=== PATIENT | male | born 1960 | race African-American/Black ===

== ENCOUNTER 2016-12-06 13:52 | Inpatient (IN) | payer OTHER ==
[2016-12-06 15:32] VITALS: BMI 27.8
--- NOTE | 2016-12-06 18:53 | HP ---
CIWA Score - CIWA Score Nausea/Vomitin-Mild Nausea/No Vomiting Muscle Tremors: 4-Moderate,w/Arms Extend Anxiety: 4-Mod. Anxious/Guarded Agitation: 3 Paroxysmal Sweats: 1-Minimal Palms Moist Orientation: 3-Disoriented Date>2 days Tacttile Disturbances: 0-None Auditory Disturbances: 0-None Visual Disturbances: 0-None Headache: 0-None Present CIWA-Ar Total Score: 16 Admission ROS S - HPI Chief Complaint: WITHDRAWAL SX Allergies/Adverse Reactions: Allergies Allergy/AdvReac Type Severity Reaction Status Date / Time shellfish derived Allergy Severe Swelling Verified 12/06/16 16:42 [Shellfish Derived] Unclassified Drug Allergy Unknown Mayonnaise Verified 12/06/16 16:42 Allergy Fish Containing Products Allergy Verified 12/06/16 16:42 History of Present Illness: 56 YEARS OLD MALE WITH LONG HISTORY OF ALCOHOL COCAINE DEPENDENCE HAS HYPERTENSION SEIZURE AND DEPRESSION IS ADMITTED TO DETOX Exam Limitations: No Limitations - Ebola screening Have you traveled outside of the country in the last 21 days: No Have you had contact with anyone from an Ebola affected area: No Have you been sick,other than usual withdrawal symptoms: No Do you have a fever: No - Review of Systems Constitutional: Chills, Changes in sleep, Weight Stable EENT: reports: No Symptoms Reported Respiratory: reports: No Symptoms reported Cardiac: reports: No Symptoms Reported GI: reports: Diarrhea, Nausea, Poor Fluid Intake, Abdominal cramping : reports: No Symptoms Reported Musculoskeletal: reports: No Symptoms Reported Integumentary: reports: No Symptoms Reported Neuro: reports: Seizure, Tremors Endocrine: reports: No Symptoms Reported Hematology: reports: No Symptoms Reported Psychiatric: reports: Judgement Intact, Depressed Other Systems: Reviewed and Negative Patient History - Patient Medical History Hx Anemia: No Hx Asthma: No Hx Chronic Obstructive Pulmonary Disease (COPD): No Hx Cancer: No Hx Cardiac Disorders: No Hx Congestive Heart Failure: No Hx Hypertension: Yes (on meds.) Hx Hypercholesterolemia: No Hx Pacemaker: No HX Cerebrovascular Accident: No Hx Seizures: Yes (seizure disorder last in 2004) Hx Dementia: No Hx Diabetes: No Hx Gastrointestinal Disorders: No Hx Liver Disease: No Hx Genitourinary Disorders: No Hx Sexually Transmitted Disorders: No Hx Renal Disease (ESRD): No Hx Thyroid Disease: No Hx Human Immunodeficiency Virus (HIV): No Hx Hepatitis C: No Hx Depression: Yes Hx Suicide Attempt: No Hx Bipolar Disorder: No Hx Schizophrenia: No - Patient Surgical History Past Surgical History: Yes Hx Neurologic Surgery: No Hx Cataract Extraction: No Hx Cardiac Surgery: No Hx Lung Surgery: No Hx Breast Surgery: No Hx Breast Biopsy: No Hx Abdominal Surgery: Yes (abd hernia repair) Hx Appendectomy: No Hx Cholecystectomy: No Hx Genitourinary Surgery: No Hx Orthopedic Surgery: Yes (Lt knee/ Lt shoulder dislocated) Anesthesia Reaction: No - PPD History Previous Implant?: Yes Documented Results: Negative w/o proof Implanted On Prior R Admission?: Yes Date: 11/03/11 PPD to be Administered?: Yes - Smoking Cessation Smoking history: Former smoker Have you smoked in the past 12 months: No Cigars Per Day: 0 Hx Chewing Tobacco Use: No Initiated information on smoking cessation: No - Substance & Tx. History Hx Alcohol Use: Yes Hx Substance Use: Yes Substance Use Type: Alcohol, Cocaine Hx Substance Use Treatment: Yes - Substances Abused Alcohol Route: Oral Frequency: Daily Amount used: 6-7 beers Age of first use: 16 Date of Last Use: 12/05/16 Crack Route: Smoking Frequency: Daily Amount used: $100-150 Age of first use: 28 Date of Last Use: 12/05/16 Family Disease History - Family Disease History Family Disease History: CA: Mother, Other: Father () Admission Physical Exam BHS - Vital Signs Vital Signs: Vital Signs - 24 hr 12/06/16 15:31 Temperature 97.6 F Pulse Rate 73 Respiratory 20 Rate Blood Pressure 154/95 - Physical General Appearance: Yes: Nourished, Appropriately Dressed, Moderate Distress, Tremorous, Irritable, Sweating, Anxious HEENTM: Yes: Hearing grossly Normal, Normal ENT Inspection, Normocephalic, Normal Voice Respiratory: Yes: Chest Non-Tender, Lungs Clear, Normal Breath Sounds, No Respiratory Distress, No Accessory Muscle Use Neck: Yes: Supple, Trachea in good position Breast: Yes: Breasts Symetrical Cardiology: Yes: Regular Rhythm, Regular Rate, S1, S2 Abdominal: Yes: Non Tender, Soft Genitourinary: Yes: Within Normal Limits Back: Yes: Normal Inspection Musculoskeletal: Yes: full range of Motion, Gait Steady Extremities: Yes: Normal Range of Motion, Non-Tender, Tremors Neurological: Yes: Alert, Motor Strength 5/5, Normal Response, Depressed Affect Integumentary: Yes: Warm Lymphatic: Yes: Within Normal Limits - Diagnostic (1) Alcohol dependence with uncomplicated withdrawal Current Visit: Yes Status: Acute (2) Cocaine dependence, uncomplicated Current Visit: Yes Status: Chronic (3) Hypertension Current Visit: Yes Status: Acute Qualifiers: Hypertension type: essential hypertension Qualified Code(s): I10 - Essential (primary) hypertension (4) Seizure Current Visit: Yes Status: Acute (5) Hyperlipidemia Current Visit: Yes Status: Acute Qualifiers: Hyperlipidemia type: pure hypercholesterolemia Qualified Code(s): E78.00 - Pure hypercholesterolemia, unspecified; E78.0 - Pure hypercholesterolemia (6) Depression headache Current Visit: Yes Status: Suspected Cleared for Admission S - Detox or Rehab [facility] Level of Care: Medically Managed Detox Regimen/Protocol: Librium [facility] Breath Alcohol Content Breath Alcohol Content: 0 Urine Drug Screen - Results Drug Screen Negative: No Urine Drug Screen Results: JELENA-Cocaine, TCA-Tricyclic Antidepress
[2016-12-06] MEDS ORDERED: chlordiazePOXIDE HCL 25 MG CAPSULE PO ONE (19:01)
[2016-12-06] MEDS ORDERED: chlordiazePOXIDE HCL 25 MG CAPSULE PO PRN (19:01)
[2016-12-06] MEDS ORDERED: MENTHOL/PHENOL 1 EACH UD MM PRN (19:01)
[2016-12-06] MEDS ORDERED: guaiFENesin/D-METHORPHAN HB 10 ML UNIT-DOSE CUPS PO PRN (19:01)
[2016-12-06] MEDS ORDERED: MAGNESIUM CITRATE 300 ML BOTTLE PO PRN (19:01)
[2016-12-06] MEDS ORDERED: ACETAMINOPHEN 325 MG TABLET (FP) PO PRN (19:01)
[2016-12-06] MEDS ORDERED: P-EPHED 60MG/TRIPROLIDI 2.5MG TABLET PO PRN (19:01)
[2016-12-06] MEDS ORDERED: hydrOXYzine PAMOATE 50 MG CAPSULE (FP) PO PRN (19:01)
[2016-12-06] MEDS ORDERED: MAG HYDROX/AL HYDROX/SIMETH 30 ML UNIT-DOSE CUP PO PRN (19:01)
[2016-12-06] MEDS ORDERED: diphenhydrAMINE HCL 50 MG CAPSULE PO PRN (19:01)
[2016-12-06] MEDS ORDERED: MAGNESIUM HYDROX 2400MG/30ML ORAL SUSPENSION 30 ML CUP PO PRN (19:01)
[2016-12-06] MEDS: ATORVASTATIN CA 10 MG TABLET (FP) PO SCH (21:28)
[2016-12-06] MEDS: THIAMINE HCL 100 MG TABLET (FP) PO SCH (22:29)
[2016-12-06] MEDS: chlordiazePOXIDE HCL 25 MG CAPSULE PO SCH (22:29)
[2016-12-06 23:19] LABS: URINE APPEARANCE TURBID; URINE BILIRUBIN NEGATIVE (NEGATIVE); URINE BLOOD NEGATIVE (NEGATIVE); URINE COLOR YELLOW; URINE GLUCOSE (UA) NEGATIVE (NEGATIVE); URINE KETONE NEGATIVE (NEGATIVE); URINE LEUK ESTERASE NEGATIVE (NEGATIVE); URINE NITRITE NEGATIVE (NEGATIVE); URINE PROTEIN NEGATIVE (NEGATIVE); URINE UROBILINOGEN NEGATIVE E.U./dl (0.2-1.0)
[2016-12-07] MEDS: chlordiazePOXIDE HCL 25 MG CAPSULE PO SCH ×4 (06:02→22:31)
[2016-12-07 10:01] LABS: MCH 29.1 pg (25.7-33.7); MCHC 33.4 g/dl (32.0-35.9); PLATELET COUNT 176 K/MM3 (134-434); RDW 14.2 % (11.9-15.9); WHITE BLOOD COUNT 7.5 K/mm3 (4.0-10.0)
--- NOTE | 2016-12-07 10:41 | PN ---
S CIWA - CIWA Score Nausea/Vomitin Muscle Tremors: 3 Anxiety: 3 Agitation: 3 Paroxysmal Sweats: 1-Minimal Palms Moist Orientation: 0-Oriented Tacttile Disturbances: 1-Very Mild Itch/Numbness Auditory Disturbances: 1-Very Mild Visual Disturbances: 1-Very Mild Sensitivity Headache: 2-Mild CIWA-Ar Total Score: 18 BHS Progress Note (SOAP) Subjective: ALERT,IRRITABLE,ANXIOUS,INTERRUPTED SLEEP,TREMOR Objective: 12/07/16 10:39 Vital Signs Temperature 99.9 F H 12/07/16 10:14 Pulse Rate 68 12/07/16 10:14 Respiratory Rate 20 12/07/16 10:14 Blood Pressure 126/63 12/07/16 10:14 O2 Sat by Pulse Oximetry (%) EKG NSR Laboratory Last Values WBC 7.5 K/mm3 (4.0-10.0) D 12/07/16 06:00 RBC 5.00 M/mm3 (4.00-5.60) 12/07/16 06:00 Hgb 14.6 GM/dL (11.7-16.9) D 12/07/16 06:00 Hct 43.5 % (35.4-49) 12/07/16 06:00 MCV 87.0 fl (80-96) 12/07/16 06:00 MCHC 33.4 g/dl (32.0-35.9) 12/07/16 06:00 RDW 14.2 % (11.9-15.9) 12/07/16 06:00 Plt Count 176 K/MM3 (134-434) D 12/07/16 06:00 MPV 9.0 fl (7.5-11.1) 12/07/16 06:00 Sodium 141 mmol/L (136-145) 12/07/16 06:00 Potassium 4.0 mmol/L (3.5-5.1) 12/07/16 06:00 Chloride 101 mmol/L (98-107) 12/07/16 06:00 Urine Color Yellow 12/06/16 23:00 Urine Appearance Turbid 12/06/16 23:00 Urine pH 5.0 (5.0-8.0) D 12/06/16 23:00 Ur Specific [place] 1.024 (1.001-1.035) 12/06/16 23:00 Urine Protein Negative (NEGATIVE) 12/06/16 23:00 Urine Glucose (UA) Negative (NEGATIVE) 12/06/16 23:00 Urine Ketones Negative (NEGATIVE) 12/06/16 23:00 Urine Blood Negative (NEGATIVE) 12/06/16 23:00 Urine Nitrite Negative (NEGATIVE) 12/06/16 23:00 Urine Bilirubin Negative (NEGATIVE) 12/06/16 23:00 Urine Urobilinogen Negative E.U./dl (0.2-1.0) 12/06/16 23:00 Ur Leukocyte Esterase Negative (NEGATIVE) 12/06/16 23:00 LABS PENDING Assessment: 12/07/16 10:40 WITHDRAWAL SYMPTOM Plan: CONTINUE DETOX
[2016-12-07 10:43] LABS: ALBUMIN 4.6 g/dl (3.4-5.0); ALK PHOS 123 U/L (45-117); ANION GAP 11 (8-16); BILIRUBIN,TOTAL 0.6 mg/dL (0.2-1.0); CO2 29 mmol/L (21-32); CREATININE 1.2 mg/dL (0.7-1.3); GLUCOSE,RANDOM 82 mg/dL (74-106); SGOT/AST 32 U/L (15-37); SGPT/ALT 44 U/L (12-78); TOT PROT 8.2 g/dl (6.4-8.2)
[2016-12-07] MEDS: carBAMazepine 200 MG TABLET PO SCH (11:38)
[2016-12-07] MEDS: amLODIPine BESYLATE 10 MG TABLET (FP) PO SCH (11:38)
[2016-12-07] MEDS: PRENATAL VITAMINS W/ FOLIC ACID TABLET (FP) PO SCH (11:38)
--- NOTE | 2016-12-07 15:09 | CONSULT ---
[facility] Psychiatric Consult - Data Date of interview: 12/07/16 Admission source: [facility] Identifying data: This is a 56 year old single black male, unemployed and domiciled. Substance Abuse History: Patient reports drinking 6-7 cans of beer daily.Cocaine $100-150 daily Medical History: HTN, seizure disorder. Psychiatric History: Patient reports he feels sad, no history of psychiatric hospitalizations, states he physically does not feel well to talk and willing to do it when feels better. Physical/Sexual Abuse/Trauma History: denies Mental Status Exam - Mental Status Exam Alert and Oriented to: Time, Place, Person Cognitive Function: Good Patient Appearance: Well Groomed Mood: Sad, Anxious Affect: Appropriate, Mood Congruent Patient Behavior: Appropriate, Cooperative Speech Pattern: Clear, Appropriate Voice Loudness: Normal Thought Process: Intact, Goal Oriented Thought Disorder: Not Present Hallucinations: Denies Suicidal Ideation: Denies Homicidal Ideation: Denies Insight/Judgement: Fair Sleep: Fair Appetite: Fair Muscle strength/Tone: Normal Gait/Station: Normal Psychiatric Findings - Problem List ([place] 1, 2,3) (1) Alcohol dependence with uncomplicated withdrawal Current Visit: Yes Status: Acute (2) Cocaine dependence, uncomplicated Current Visit: Yes Status: Chronic - Initial Treatment Plan Initial Treatment Plan: continue detox. protocol, please call for consult when patient is feeling better..
--- NOTE | 2016-12-07 16:28 | EKG ---
Test Reason : Blood Pressure : / mmHG Vent. Rate : 085 BPM Atrial Rate : 085 BPM P-R Int : 134 ms QRS Dur : 080 ms QT Int : 376 ms P-R-T Axes : 069 035 050 degrees QTc Int : 447 ms NORMAL SINUS RHYTHM MINIMAL VOLTAGE CRITERIA FOR LVH, MAY BE NORMAL VARIANT NONSPECIFIC T WAVE ABNORMALITY ABNORMAL ECG NO PREVIOUS ECGS AVAILABLE Confirmed by ANA LAURA JACOBSEN MD ([id number]) on 12/07/2016 4:28:22 PM Referred By: Wm López Confirmed By:ANA LAURA JACOBSEN MD
[2016-12-07] MEDS: IBUPROFEN 400 MG TABLET (FP) PO PRN (17:53)
[2016-12-07] MEDS: THIAMINE HCL 100 MG TABLET (FP) PO SCH (22:30)
[2016-12-07] MEDS: ATORVASTATIN CA 10 MG TABLET (FP) PO SCH (22:31)
[2016-12-07] MEDS: LOPERAMIDE HCL 2 MG CAPSULE PO PRN (22:33)
[2016-12-08] MEDS: chlordiazePOXIDE HCL 25 MG CAPSULE PO SCH ×3 (06:06→17:55)
[2016-12-08] MEDS: amLODIPine BESYLATE 10 MG TABLET (FP) PO SCH (10:32)
[2016-12-08] MEDS: PRENATAL VITAMINS W/ FOLIC ACID TABLET (FP) PO SCH (10:32)
[2016-12-08] MEDS: carBAMazepine 200 MG TABLET PO SCH (10:32)
[2016-12-08] MEDS: LOPERAMIDE HCL 2 MG CAPSULE PO PRN ×2 (10:34→19:32)
--- NOTE | 2016-12-08 10:45 | PN ---
S CIWA - CIWA Score Nausea/Vomitin Muscle Tremors: 3 Anxiety: 3 Agitation: 2 Paroxysmal Sweats: 1-Minimal Palms Moist Orientation: 0-Oriented Tacttile Disturbances: 1-Very Mild Itch/Numbness Auditory Disturbances: 1-Very Mild Visual Disturbances: 1-Very Mild Sensitivity Headache: 2-Mild CIWA-Ar Total Score: 17 BHS Progress Note (SOAP) Subjective: ALERT,IRRITABLE,ANXIOUS,INTERRUPTED SLEEP,TREMOR Objective: 12/08/16 10:40 Vital Signs Temperature 99.9 F H 12/08/16 09:50 Pulse Rate 91 H 12/08/16 09:50 Respiratory Rate 20 12/08/16 09:50 Blood Pressure 138/75 12/08/16 09:50 O2 Sat by Pulse Oximetry (%) Laboratory Last Values WBC 7.5 K/mm3 (4.0-10.0) D 12/07/16 06:00 RBC 5.00 M/mm3 (4.00-5.60) 12/07/16 06:00 Hgb 14.6 GM/dL (11.7-16.9) D 12/07/16 06:00 Hct 43.5 % (35.4-49) 12/07/16 06:00 MCV 87.0 fl (80-96) 12/07/16 06:00 MCHC 33.4 g/dl (32.0-35.9) 12/07/16 06:00 RDW 14.2 % (11.9-15.9) 12/07/16 06:00 Plt Count 176 K/MM3 (134-434) D 12/07/16 06:00 MPV 9.0 fl (7.5-11.1) 12/07/16 06:00 Sodium 141 mmol/L (136-145) 12/07/16 06:00 Potassium 4.0 mmol/L (3.5-5.1) 12/07/16 06:00 Chloride 101 mmol/L (98-107) 12/07/16 06:00 Carbon Dioxide 29 mmol/L (21-32) 12/07/16 06:00 Anion Gap 11 (8-16) 12/07/16 06:00 BUN 18 mg/dL (7-18) D 12/07/16 06:00 Creatinine 1.2 mg/dL (0.7-1.3) D 12/07/16 06:00 Creat Clearance w eGFR > 60 (>60) 12/07/16 06:00 Random Glucose 82 mg/dL (74-106) 12/07/16 06:00 Calcium 9.0 mg/dL (8.5-10.1) 12/07/16 06:00 Total Bilirubin 0.6 mg/dL (0.2-1.0) D 12/07/16 06:00 AST 32 U/L (15-37) D 12/07/16 06:00 ALT 44 U/L (12-78) D 12/07/16 06:00 Alkaline Phosphatase 123 U/L (45-117) H D 12/07/16 06:00 Total Protein 8.2 g/dl (6.4-8.2) D 12/07/16 06:00 Albumin 4.6 g/dl (3.4-5.0) D 12/07/16 06:00 Urine Color Yellow 12/06/16 23:00 Urine Appearance Turbid 12/06/16 23:00 Urine pH 5.0 (5.0-8.0) D 12/06/16 23:00 Ur Specific [place] 1.024 (1.001-1.035) 12/06/16 23:00 Urine Protein Negative (NEGATIVE) 12/06/16 23:00 Urine Glucose (UA) Negative (NEGATIVE) 12/06/16 23:00 Urine Ketones Negative (NEGATIVE) 12/06/16 23:00 Urine Blood Negative (NEGATIVE) 12/06/16 23:00 Urine Nitrite Negative (NEGATIVE) 12/06/16 23:00 Urine Bilirubin Negative (NEGATIVE) 12/06/16 23:00 Urine Urobilinogen Negative E.U./dl (0.2-1.0) 12/06/16 23:00 Ur Leukocyte Esterase Negative (NEGATIVE) 12/06/16 23:00 Carbamazepine 3.8 ug/ml (4.0-12.0) L 12/07/16 06:00 RPR Titer Nonreactive (NONREACTIVE) 12/07/16 06:00 12/08/16 10:45 Assessment: 12/08/16 10:45 WITHDRAWAL SYMPTOM Plan: CONTINUE DETOX,ENCOURAGE ORAL FLUID
[2016-12-08] MEDS: IBUPROFEN 400 MG TABLET (FP) PO PRN (19:32)
--- NOTE | 2016-12-08 20:19 | PN ---
[id number], alert oriented x 3, no acute distress, states that abdominal pain with diarrhea x 2 days abdomen round, hypersonic x 4, gassy, discontinue motrin, begin zantac 150 mg bid + carafate 2 G bid abdomen x ray encourage oral fluid continue alcohol detox
[2016-12-08] MEDS: chlordiazePOXIDE 5 MG CAPSULE PO SCH (22:39)
[2016-12-08] MEDS: ATORVASTATIN CA 10 MG TABLET (FP) PO SCH (22:39)
[2016-12-08] MEDS: PANTOPRAZOLE 40 MG TABLET (FP) PO SCH (22:39)
[2016-12-08] MEDS: THIAMINE HCL 100 MG TABLET (FP) PO SCH (23:45)
[2016-12-08] MEDS: SUCRALFATE 1 GM TABLET (FP) PO SCH (23:58)
[2016-12-09] MEDS: chlordiazePOXIDE 5 MG CAPSULE PO SCH ×3 (08:29→18:40)
[2016-12-09] MEDS: PANTOPRAZOLE 40 MG TABLET (FP) PO SCH (11:30)
[2016-12-09] MEDS: carBAMazepine 200 MG TABLET PO SCH (11:30)
[2016-12-09] MEDS: amLODIPine BESYLATE 10 MG TABLET (FP) PO SCH (11:30)
[2016-12-09] MEDS: PRENATAL VITAMINS W/ FOLIC ACID TABLET (FP) PO SCH (11:30)
--- NOTE | 2016-12-09 14:53 | PN ---
BHS Progress Note (SOAP) Subjective: Interrupted sleep, Body aches, Diarrhea, Sweating. Objective: PT. A & O X 3, OBSERVED AMBULATING ON UNIT. 12/09/16 14:51 Vital Signs Temperature 97.7 F 12/09/16 14:15 Pulse Rate 92 H 12/09/16 14:15 Respiratory Rate 18 12/09/16 14:15 Blood Pressure 106/61 12/09/16 14:15 O2 Sat by Pulse Oximetry (%) Laboratory Last Values WBC 7.5 K/mm3 (4.0-10.0) D 12/07/16 06:00 RBC 5.00 M/mm3 (4.00-5.60) 12/07/16 06:00 Hgb 14.6 GM/dL (11.7-16.9) D 12/07/16 06:00 Hct 43.5 % (35.4-49) 12/07/16 06:00 MCV 87.0 fl (80-96) 12/07/16 06:00 MCHC 33.4 g/dl (32.0-35.9) 12/07/16 06:00 RDW 14.2 % (11.9-15.9) 12/07/16 06:00 Plt Count 176 K/MM3 (134-434) D 12/07/16 06:00 MPV 9.0 fl (7.5-11.1) 12/07/16 06:00 Sodium 141 mmol/L (136-145) 12/07/16 06:00 Potassium 4.0 mmol/L (3.5-5.1) 12/07/16 06:00 Chloride 101 mmol/L (98-107) 12/07/16 06:00 Carbon Dioxide 29 mmol/L (21-32) 12/07/16 06:00 Anion Gap 11 (8-16) 12/07/16 06:00 BUN 18 mg/dL (7-18) D 12/07/16 06:00 Creatinine 1.2 mg/dL (0.7-1.3) D 12/07/16 06:00 Creat Clearance w eGFR > 60 (>60) 12/07/16 06:00 Random Glucose 82 mg/dL (74-106) 12/07/16 06:00 Calcium 9.0 mg/dL (8.5-10.1) 12/07/16 06:00 Total Bilirubin 0.6 mg/dL (0.2-1.0) D 12/07/16 06:00 AST 32 U/L (15-37) D 12/07/16 06:00 ALT 44 U/L (12-78) D 12/07/16 06:00 Alkaline Phosphatase 123 U/L (45-117) H D 12/07/16 06:00 Total Protein 8.2 g/dl (6.4-8.2) D 12/07/16 06:00 Albumin 4.6 g/dl (3.4-5.0) D 12/07/16 06:00 Urine Color Yellow 12/06/16 23:00 Urine Appearance Turbid 12/06/16 23:00 Urine pH 5.0 (5.0-8.0) D 12/06/16 23:00 Ur Specific [place] 1.024 (1.001-1.035) 12/06/16 23:00 Urine Protein Negative (NEGATIVE) 12/06/16 23:00 Urine Glucose (UA) Negative (NEGATIVE) 12/06/16 23:00 Urine Ketones Negative (NEGATIVE) 12/06/16 23:00 Urine Blood Negative (NEGATIVE) 12/06/16 23:00 Urine Nitrite Negative (NEGATIVE) 12/06/16 23:00 Urine Bilirubin Negative (NEGATIVE) 12/06/16 23:00 Urine Urobilinogen Negative E.U./dl (0.2-1.0) 12/06/16 23:00 Ur Leukocyte Esterase Negative (NEGATIVE) 12/06/16 23:00 Carbamazepine 3.8 ug/ml (4.0-12.0) L 12/07/16 06:00 RPR Titer Nonreactive (NONREACTIVE) 12/07/16 06:00 LABS NOTED. Assessment: 12/09/16 14:52 WITHDRAWAL SYMPTOMS. Plan: CONTINUE DETOX. ADVISED PATIENT TO FOLLOW-UP WITH [facility] / REHAB MEDICAL PROVIDER AFTER DISCHARGE FROM DETOX FOR GENERAL MEDICAL ASSESSMENT AND FOR ABNORMAL ADMISSION LAB VALUES.
[2016-12-09] MEDS: SUCRALFATE 1 GM TABLET (FP) PO SCH (15:44)
[2016-12-10] MEDS: SUCRALFATE 1 GM TABLET (FP) PO SCH ×2 (00:06→10:53)
[2016-12-10] MEDS: ATORVASTATIN CA 10 MG TABLET (FP) PO SCH (00:06)
[2016-12-10] MEDS: THIAMINE HCL 100 MG TABLET (FP) PO SCH (00:06)
[2016-12-10] MEDS: PANTOPRAZOLE 40 MG TABLET (FP) PO SCH ×2 (00:06→10:53)
[2016-12-10] MEDS: chlordiazePOXIDE HCL 10 MG CAPSULE PO SCH ×4 (00:08→18:12)
[2016-12-10] MEDS: PRENATAL VITAMINS W/ FOLIC ACID TABLET (FP) PO SCH (10:53)
[2016-12-10] MEDS: carBAMazepine 200 MG TABLET PO SCH (10:54)
[2016-12-10] MEDS: amLODIPine BESYLATE 10 MG TABLET (FP) PO SCH (10:54)
--- NOTE | 2016-12-10 14:57 | PN ---
BHS Progress Note (SOAP) Subjective: C/O sharrp stomach pain and diarrhea since admission (patient believes he has stomach virus), feeling weak, anxious, interrupted sleep. Patient roommate stated that patient is sick and have diarrhea every day. Patient reports poor appetite (didn't eat breakfast because doesn't have any appetite) Objective: 12/10/16 14:53 Last Vital Signs Temp Pulse Resp BP Pulse Ox 97.7 F 93 H 18 126/73 12/10/16 13:52 12/10/16 13:52 12/10/16 13:52 12/10/16 13:52 PE: Mouth: moist mucous membranes, lips moist Resp: lungs ctab/l, no adventitious breath sounds CV: rrr, s1s2+, apical rate 80 bmp, no m/g/r Abd: softly distended, + bs x 4, no rebound tenderness Skin: turgor good, moist Laboratory Tests 12/06/16 12/07/16 12/07/16 23:00 06:00 06:00 WBC 7.5 D RBC 5.00 Hgb 14.6 D Hct 43.5 MCV 87.0 MCHC 33.4 RDW 14.2 Plt Count 176 D MPV 9.0 Sodium 141 Potassium 4.0 Chloride 101 Carbon Dioxide 29 Anion Gap 11 BUN 18 D Creatinine 1.2 D Creat Clearance w eGFR > 60 Random Glucose 82 Calcium 9.0 Total Bilirubin 0.6 D AST 32 D ALT 44 D Alkaline Phosphatase 123 H D Total Protein 8.2 D Albumin 4.6 D Urine Color Yellow Urine Appearance Turbid Urine pH 5.0 D Ur Specific [place] 1.024 Urine Protein Negative Urine Glucose (UA) Negative Urine Ketones Negative Urine Blood Negative Urine Nitrite Negative Urine Bilirubin Negative Urine Urobilinogen Negative Ur Leukocyte Esterase Negative Carbamazepine RPR Titer 12/07/16 12/07/16 06:00 06:00 WBC RBC Hgb Hct MCV MCHC RDW Plt Count MPV Sodium Potassium Chloride Carbon Dioxide Anion Gap BUN Creatinine Creat Clearance w eGFR Random Glucose Calcium Total Bilirubin AST ALT Alkaline Phosphatase Total Protein Albumin Urine Color Urine Appearance Urine pH Ur Specific [place] Urine Protein Urine Glucose (UA) Urine Ketones Urine Blood Urine Nitrite Urine Bilirubin Urine Urobilinogen Ur Leukocyte Esterase Carbamazepine 3.8 L RPR Titer Nonreactive Labs noted 12/10/16 14:57 Assessment: 12/10/16 14:54 Withdrawal symptoms c/o persistent abdominal pain with diarrhea Plan: Continue detox Viral gastroenteritis: abdominal xray in AM, repeat BMP, change diet to clear liquids (patient agreed; can advance diet when sxs improved), encouraged to drink lots of water, provide water pitcher to patient, continue imodium prn
[2016-12-10] MEDS ORDERED: LOPERAMIDE HCL 2 MG CAPSULE PO ONE (15:10)
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
[2016-12-11] MEDS: THIAMINE HCL 100 MG TABLET (FP) PO SCH (00:10)
[2016-12-11] MEDS: SUCRALFATE 1 GM TABLET (FP) PO SCH ×2 (00:10→10:59)
[2016-12-11] MEDS: PANTOPRAZOLE 40 MG TABLET (FP) PO SCH ×2 (00:10→10:58)
[2016-12-11] MEDS: ATORVASTATIN CA 10 MG TABLET (FP) PO SCH (00:10)
--- NOTE | 2016-12-11 08:42 | PN ---
S Progress Note (SOAP) Subjective: ALERT,NO COMPLAINT Objective: 12/11/16 08:41 Vital Signs Temperature 97.2 F L 12/11/16 06:44 Pulse Rate 81 12/11/16 06:44 Respiratory Rate 18 12/11/16 06:44 Blood Pressure 110/70 12/11/16 06:44 O2 Sat by Pulse Oximetry (%) Assessment: 12/11/16 08:41 DETOX COMPLETED,NO WITHDRAWAL SYMPTOM Plan: DISCHARGE TODAY,FOLLOW UP WITH AFTER CARE PROGRAM ARRANGEMENT
--- NOTE | 2016-12-11 08:47 | DS ---
[facility] Detox Discharge Summary Admission Date: 12/06/16 Discharge Date: 12/11/16 - History Present History: Alcohol Dependence, Cocaine Dependence Additional Comments: FOLLOW UP WITH [facility] PROGRAM ARRANGEMENT AND PMD FOR MEDICAL PROBLEM Pertinent Past History: HYPERTESION SEIZURE HYPERLIPIDEMIA DEPRESSION - Physical Exam Results Vital Signs: Vital Signs Temperature 97.2 F L 12/11/16 06:44 Pulse Rate 81 12/11/16 06:44 Respiratory Rate 18 12/11/16 06:44 Blood Pressure 110/70 12/11/16 06:44 O2 Sat by Pulse Oximetry (%) Pertinent Admission Physical Exam Findings: WITHDRAWAL SYMPTOM - Treatment Hospital Course: Detox Protocol Followed, Detoxed Safely, Responded well, Discharged Condition Good Patient has Accepted a Rehab Referral to: DECLINED - Medication Discharge Medications: Ambulatory Orders Amlodipine/Atorvastatin [Amlodipine-Atorvast 10-10 mg] 1 each PO DAILY 12/06/16 Carbamazepine [Tegretol -] 400 mg PO DAILY 12/06/16 - AMA Did Patient Leave Against Medical Advice: No
[2016-12-11 09:44] VITALS: BP 137/76; PULSE 77; TEMP 100
[2016-12-11 10:18] LABS: CALCIUM 8.1 mg/dL (8.5-10.1); COCKROFT - GAULT 97.9; CREATININE 1.2 mg/dL (0.7-1.3)
--- NOTE | 2016-12-11 10:45 | PN ---
S Progress Note Note: ADDENDUM K IS 3.3 ON KDUR 20 JULIANNE PO DAILY FOR 7 DAYS,E PRESCRIPTION TO [facility]
[2016-12-11] MEDS: carBAMazepine 200 MG TABLET PO SCH (10:57)
[2016-12-11] MEDS: PRENATAL VITAMINS W/ FOLIC ACID TABLET (FP) PO SCH (10:57)
[2016-12-11] MEDS: amLODIPine BESYLATE 10 MG TABLET (FP) PO SCH (10:58)
[2016-12-11] MEDS ORDERED: POTASSIUM CHLORIDE TABS 20 MEQ TABLET.ER (FP) PO ONE (11:19)
[2016-12-12] MEDS ORDERED: POTASSIUM CHLORIDE TABS 20 MEQ TABLET.ER (FP) PO SCH (10:00)
== END 2016-12-11 12:45 | disposition home or self-care (01) | DRG 774 ==
LOC: YASAS 13:52 → Y6N 18:11
PROVIDERS: ADMIT Internal Medicine Addiction Medicine; ATTEND Internal Medicine Addiction Medicine
PROC: HZ2ZZZZ Detoxification Services for Substance Abuse Treatment (ICD-10-PCS; principal; 2016-12-11)
DX: F10.230 Alcohol dependence with withdrawal, uncomplicated (principal); F14.20 Cocaine dependence, uncomplicated; F32.9 Major depressive disorder, single episode, unspecified; I10 Essential (primary) hypertension; G40.909 Epilepsy, unspecified, not intractable, without status epilepticus; E78.00 Pure hypercholesterolemia, unspecified
CPT/HCPCS: 36415; 74020-TC; 80048; 80053; 80156; 81003; 85027; 86593; 93005; 93010

== ENCOUNTER 2022-04-19 14:05 | Inpatient (IN) | payer OTHER ==
[2022-04-19] MEDS ORDERED: guaiFENesin 200 MG/10 ML 10 ML UNIT-DOSE CUPS PO PRN (17:57)
[2022-04-19] MEDS ORDERED: LOPERAMIDE HCL 2 MG CAPSULE PO PRN (17:57)
[2022-04-19] MEDS ORDERED: MAGNESIUM HYDROX 2400MG/30ML ORAL SUSPENSION 30 ML CUP PO PRN (17:57)
[2022-04-19] MEDS ORDERED: MAG HYDROX/AL HYDROX/SIMETH 30 ML UNIT-DOSE CUP PO PRN (17:57)
[2022-04-19] MEDS ORDERED: P-EPHED 60MG/TRIPROLIDI 2.5MG TABLET PO PRN (17:57)
[2022-04-19] MEDS ORDERED: MAGNESIUM CITRATE 300 ML BOTTLE PO PRN (17:57)
[2022-04-19 21:26] VITALS: BMI 23.7
[2022-04-19] MEDS ORDERED: TUBERCULIN PPD 5 TU/0.1ML VIAL ID ONE (22:40)
[2022-04-19] MEDS: hydrOXYzine PAMOATE 25 MG CAPSULE (FP) PO SCH ×2 (22:50→22:51)
[2022-04-19] MEDS: MELATONIN 5 MG TABLETS PO SCH (22:51)
[2022-04-19] MEDS: THIAMINE HCL 100 MG TABLET (FP) PO SCH (22:51)
[2022-04-20 04:30] LABS: EPI CELLS 5 /uL (0-25.1); HYALINE CASTS 3 /uL (0-3.1); URINE APPEARANCE TURBID; URINE BACTERIA 82 /uL (0-1359); URINE BILIRUBIN NEGATIVE (NEGATIVE); URINE COLOR YELLOW; URINE GLUCOSE (UA) NEGATIVE (NEGATIVE); URINE KETONE NEGATIVE (NEGATIVE); URINE LEUK ESTERASE 3+ (NEGATIVE); URINE NITRITE NEGATIVE (NEGATIVE); URINE PROTEIN 1+ (NEGATIVE); URINE RBC 476 /uL (0-23.9); URINE UROBILINOGEN 0.2 mg/dL (0.2-1.0); URINE WBC 4697 /uL (0-25.8)
[2022-04-20] MEDS: hydrOXYzine PAMOATE 25 MG CAPSULE (FP) PO SCH ×5 (07:30→21:26)
[2022-04-20] MEDS: PRENATAL VITAMINS W/ FOLIC ACID TABLET (FP) PO SCH (10:13)
[2022-04-20] MEDS ORDERED: carBAMazepine 200 MG TABLET PO ONE (14:14)
[2022-04-20] MEDS: amLODIPine BESYLATE 10 MG TABLET (FP) PO SCH (15:25)
[2022-04-20 15:49] LABS: HEMATOCRIT 34.5 % (35.4-49); HEMOGLOBIN 11.6 GM/dL (11.7-16.9); MCH 27.5 pg (25.7-33.7); MCHC 33.5 g/dl (32.0-35.9); MEAN CELL VOLUME 81.9 fl (80-96); MEAN PLT VOLUME 8.2 fl (7.5-11.1); PLATELET COUNT 270 10^3/uL (134-434); RBC 4.22 M/mm3 (4.00-5.60); RDW 15.9 % (11.9-15.9); WHITE BLOOD COUNT 4.4 K/mm3 (4.0-10.0)
[2022-04-20 16:00] LABS: ALBUMIN 3.1 g/dl (3.4-5.0); BLOOD UREA NITROGEN 14.4 mg/dL (7-18)
[2022-04-20 16:03] LABS: CREATININE 0.9 mg/dL (0.55-1.3)
[2022-04-20 16:04] LABS: BILIRUBIN,TOTAL 0.2 mg/dL (0.2-1); TOT PROT 6.6 g/dl (6.4-8.2)
[2022-04-20] MEDS: MELATONIN 5 MG TABLETS PO SCH (21:26)
[2022-04-20] MEDS: THIAMINE HCL 100 MG TABLET (FP) PO SCH (21:30)
[2022-04-21] MEDS: carBAMazepine 200 MG TABLET PO SCH ×3 (00:27→21:15)
[2022-04-21] MEDS: hydrOXYzine PAMOATE 25 MG CAPSULE (FP) PO SCH ×5 (07:50→21:16)
[2022-04-21] MEDS: amLODIPine BESYLATE 10 MG TABLET (FP) PO SCH (09:44)
[2022-04-21] MEDS: PRENATAL VITAMINS W/ FOLIC ACID TABLET (FP) PO SCH (09:45)
[2022-04-21 15:34] VITALS: RESP 18
[2022-04-21] MEDS: THIAMINE HCL 100 MG TABLET (FP) PO SCH (21:15)
[2022-04-21] MEDS: MELATONIN 5 MG TABLETS PO SCH (21:16)
[2022-04-22] MEDS: hydrOXYzine PAMOATE 25 MG CAPSULE (FP) PO SCH ×5 (06:20→21:38)
[2022-04-22] MEDS: amLODIPine BESYLATE 10 MG TABLET (FP) PO SCH (10:27)
[2022-04-22] MEDS: carBAMazepine 200 MG TABLET PO SCH ×2 (10:27→21:38)
[2022-04-22] MEDS: PRENATAL VITAMINS W/ FOLIC ACID TABLET (FP) PO SCH (10:28)
[2022-04-22] MEDS: THIAMINE HCL 100 MG TABLET (FP) PO SCH (21:38)
[2022-04-22] MEDS: MELATONIN 5 MG TABLETS PO SCH (21:38)
[2022-04-23] MEDS: hydrOXYzine PAMOATE 25 MG CAPSULE (FP) PO SCH ×5 (06:55→21:14)
[2022-04-23] MEDS: PRENATAL VITAMINS W/ FOLIC ACID TABLET (FP) PO SCH (10:06)
[2022-04-23] MEDS: amLODIPine BESYLATE 10 MG TABLET (FP) PO SCH (10:07)
[2022-04-23] MEDS: carBAMazepine 200 MG TABLET PO SCH ×2 (10:07→21:13)
[2022-04-23] MEDS: MELATONIN 5 MG TABLETS PO SCH (21:14)
[2022-04-23] MEDS: THIAMINE HCL 100 MG TABLET (FP) PO SCH (21:14)
[2022-04-24] MEDS: hydrOXYzine PAMOATE 25 MG CAPSULE (FP) PO SCH ×5 (06:52→21:07)
[2022-04-24] MEDS: carBAMazepine 200 MG TABLET PO SCH ×2 (10:50→21:06)
[2022-04-24] MEDS: amLODIPine BESYLATE 10 MG TABLET (FP) PO SCH (10:50)
[2022-04-24] MEDS: PRENATAL VITAMINS W/ FOLIC ACID TABLET (FP) PO SCH (10:50)
[2022-04-24] MEDS: ACETAMINOPHEN 325 MG TABLET (FP) PO PRN ×2 (15:36→21:37)
[2022-04-24] MEDS: MELATONIN 5 MG TABLETS PO SCH (21:07)
[2022-04-24] MEDS: THIAMINE HCL 100 MG TABLET (FP) PO SCH (21:07)
[2022-04-25] MEDS: hydrOXYzine PAMOATE 25 MG CAPSULE (FP) PO SCH ×2 (06:03→10:08)
[2022-04-25] MEDS: PRENATAL VITAMINS W/ FOLIC ACID TABLET (FP) PO SCH (09:51)
[2022-04-25] MEDS: carBAMazepine 200 MG TABLET PO SCH ×2 (09:51→21:18)
[2022-04-25] MEDS: amLODIPine BESYLATE 10 MG TABLET (FP) PO SCH (09:51)
[2022-04-25] MEDS ORDERED: hydrOXYzine PAMOATE 25 MG CAPSULE (FP) PO PRN (10:09)
[2022-04-25] MEDS: MELATONIN 5 MG TABLETS PO SCH (21:18)
[2022-04-25] MEDS: ATORVASTATIN CA 10 MG TABLET (FP) PO SCH (21:18)
[2022-04-25] MEDS: THIAMINE HCL 100 MG TABLET (FP) PO SCH (21:19)
[2022-04-25] MEDS: ACETAMINOPHEN 325 MG TABLET (FP) PO PRN (21:19)
[2022-04-26] MEDS: TAMSULOSIN HCL 0.4 MG CAP PO SCH (09:10)
[2022-04-26] MEDS: amLODIPine BESYLATE 10 MG TABLET (FP) PO SCH (09:10)
[2022-04-26] MEDS: PRENATAL VITAMINS W/ FOLIC ACID TABLET (FP) PO SCH (09:11)
[2022-04-26] MEDS: carBAMazepine 200 MG TABLET PO SCH ×2 (09:11→21:19)
[2022-04-26] MEDS ORDERED: MULTIVITAMINS (DAILY MVI) TABLET (FP) PO SCH ×2 (10:00)
[2022-04-26] MEDS: IBUPROFEN 400 MG TABLET (FP) PO PRN (21:19)
[2022-04-26] MEDS: MELATONIN 5 MG TABLETS PO SCH (21:20)
[2022-04-26] MEDS: THIAMINE HCL 100 MG TABLET (FP) PO SCH (21:20)
[2022-04-26] MEDS: ATORVASTATIN CA 10 MG TABLET (FP) PO SCH (21:20)
[2022-04-27] MEDS: carBAMazepine 200 MG TABLET PO SCH ×2 (09:38→21:16)
[2022-04-27] MEDS: PRENATAL VITAMINS W/ FOLIC ACID TABLET (FP) PO SCH (09:38)
[2022-04-27] MEDS: amLODIPine BESYLATE 10 MG TABLET (FP) PO SCH (09:38)
[2022-04-27] MEDS: TAMSULOSIN HCL 0.4 MG CAP PO SCH (09:39)
[2022-04-27] MEDS: ATORVASTATIN CA 10 MG TABLET (FP) PO SCH (21:15)
[2022-04-27] MEDS: IBUPROFEN 400 MG TABLET (FP) PO PRN (21:16)
[2022-04-27] MEDS: THIAMINE HCL 100 MG TABLET (FP) PO SCH (21:16)
[2022-04-27] MEDS: MELATONIN 5 MG TABLETS PO SCH (21:16)
[2022-04-28] MEDS: TAMSULOSIN HCL 0.4 MG CAP PO SCH (09:45)
[2022-04-28] MEDS: PRENATAL VITAMINS W/ FOLIC ACID TABLET (FP) PO SCH (09:45)
[2022-04-28] MEDS: amLODIPine BESYLATE 10 MG TABLET (FP) PO SCH (09:45)
[2022-04-28] MEDS: carBAMazepine 200 MG TABLET PO SCH ×2 (09:46→21:07)
[2022-04-28] MEDS: IBUPROFEN 400 MG TABLET (FP) PO PRN (21:08)
[2022-04-28] MEDS: MELATONIN 5 MG TABLETS PO SCH (21:09)
[2022-04-28] MEDS: ATORVASTATIN CA 10 MG TABLET (FP) PO SCH (21:09)
[2022-04-28] MEDS: THIAMINE HCL 100 MG TABLET (FP) PO SCH (21:09)
[2022-04-29] MEDS: amLODIPine BESYLATE 10 MG TABLET (FP) PO SCH (10:04)
[2022-04-29] MEDS: TAMSULOSIN HCL 0.4 MG CAP PO SCH (10:04)
[2022-04-29] MEDS: carBAMazepine 200 MG TABLET PO SCH ×2 (10:05→21:06)
[2022-04-29] MEDS: PRENATAL VITAMINS W/ FOLIC ACID TABLET (FP) PO SCH (10:06)
[2022-04-29] MEDS: ATORVASTATIN CA 10 MG TABLET (FP) PO SCH (21:06)
[2022-04-29] MEDS: THIAMINE HCL 100 MG TABLET (FP) PO SCH (21:07)
[2022-04-29] MEDS: MELATONIN 5 MG TABLETS PO SCH (21:07)
[2022-04-30] MEDS: TAMSULOSIN HCL 0.4 MG CAP PO SCH (10:02)
[2022-04-30] MEDS: amLODIPine BESYLATE 10 MG TABLET (FP) PO SCH (10:02)
[2022-04-30] MEDS: PRENATAL VITAMINS W/ FOLIC ACID TABLET (FP) PO SCH (10:02)
[2022-04-30] MEDS: carBAMazepine 200 MG TABLET PO SCH ×2 (10:03→21:05)
[2022-04-30] MEDS: MELATONIN 5 MG TABLETS PO SCH (21:05)
[2022-04-30] MEDS: ATORVASTATIN CA 10 MG TABLET (FP) PO SCH (21:05)
[2022-04-30] MEDS: THIAMINE HCL 100 MG TABLET (FP) PO SCH (21:05)
[2022-05-01 06:50] VITALS: BP 160/84; PULSE 59; TEMP 98.4
[2022-05-01] MEDS ORDERED: carBAMazepine 200 MG TABLET PO SCH (07:50)
[2022-05-01] MEDS: amLODIPine BESYLATE 10 MG TABLET (FP) PO SCH (08:16)
== END 2022-05-01 08:19 | disposition home or self-care (01) | DRG 772 ==
LOC: YASAS 14:05 → Y5N 21:34 → Y3W 04-21 15:28
PROVIDERS: ADMIT Allergy & Immunology; ATTEND Allergy & Immunology
PROC: HZ42ZZZ Group Counseling for Substance Abuse Treatment, Cognitive-Behavioral (ICD-10-PCS; principal; 2022-04-19)
DX: F14.20 Cocaine dependence, uncomplicated (principal); E87.6 Hypokalemia; G40.909 Epilepsy, unspecified, not intractable, without status epilepticus; I10 Essential (primary) hypertension; N40.0 Benign prostatic hyperplasia without lower urinary tract symptoms; N39.0 Urinary tract infection, site not specified; R10.32 Left lower quadrant pain; Z87.442 Personal history of urinary calculi; Z96.0 Presence of urogenital implants
CPT/HCPCS: 36415; 80053; 80156; 81003; 85027; 86780; C9803-CS; U0003; U0005

== ENCOUNTER 2022-04-25 10:29 | Emergency (ER) | payer OTHER ==
[2022-04-25 10:34] VITALS: BP 123/77; PULSE 67; RESP 18; TEMP 97.7; BMI 23.7
[2022-04-25 14:43] LABS: BASO % 0.4 % (0-2.0); HEMATOCRIT 39.1 % (35.4-49); HEMOGLOBIN 12.6 GM/dL (11.7-16.9); LYMPH % 52.6 % (8-40); MCH 27.1 pg (25.7-33.7); MCHC 32.3 g/dl (32.0-35.9); MEAN CELL VOLUME 83.8 fl (80-96); MEAN PLT VOLUME 8.6 fl (7.5-11.1); PLATELET COUNT 304 10^3/uL (134-434); RBC 4.67 M/mm3 (4.00-5.60); RDW 15.9 % (11.9-15.9); WHITE BLOOD COUNT 6.2 K/mm3 (4.0-10.0)
[2022-04-25 15:04] LABS: CALCIUM 9.3 mg/dL (8.5-10.1)
[2022-04-25 15:05] LABS: ALBUMIN 3.6 g/dl (3.4-5.0); BLOOD UREA NITROGEN 7.8 mg/dL (7-18)
[2022-04-25 15:08] LABS: CREATININE 0.9 mg/dL (0.55-1.3)
[2022-04-25 15:09] LABS: BILIRUBIN,TOTAL 0.2 mg/dL (0.2-1); TOT PROT 7.6 g/dl (6.4-8.2)
[2022-04-25 15:34] LABS: EPI CELLS >36 /uL (0-25.1); HYALINE CASTS 17 /uL (0-3.1); URINE APPEARANCE CLEAR; URINE BACTERIA 17 /uL (0-1359); URINE BILIRUBIN NEGATIVE (NEGATIVE); URINE COLOR YELLOW; URINE GLUCOSE (UA) NEGATIVE (NEGATIVE); URINE KETONE NEGATIVE (NEGATIVE); URINE LEUK ESTERASE 2+ (NEGATIVE); URINE NITRITE NEGATIVE (NEGATIVE); URINE PROTEIN TRACE (NEGATIVE); URINE RBC 17 /uL (0-23.9); URINE UROBILINOGEN 0.2 mg/dL (0.2-1.0); URINE WBC 310 /uL (0-25.8)
== END 2022-04-25 15:30 | disposition home or self-care (01) ==
LOC: JER 10:29
DX: S20.211A Contusion of right front wall of thorax, initial encounter (principal); N20.0 Calculus of kidney; F14.20 Cocaine dependence, uncomplicated; Y99.9 Unspecified external cause status
CPT/HCPCS: 36415; 74176-TC; 80053; 81003; 85025; 87086; 99284-25